=== PATIENT | male | born 1955 | race African-American/Black ===

== ENCOUNTER 2022-03-07 15:39 | Inpatient (IN) | payer MEDICARE, MEDICAID ==
[~2022-03-07] VITALS: Ht 180.3 cm; Wt 92.1 kg
[2022-03-07 16:22] LABS: BASOPHILS % 0.9 % (0.0-2.0); EOSINOPHILS % 0.6 % (0.0-5.0); HEMATOCRIT. 36.8 % (42.0-52.0); HEMOGLOBIN. 11.9 g/dL (14.0-18.0); LYMPHOCYTES % 17.4 % (20.0-50.0); MEAN CORPUSCULAR HEMOGLOBIN 26.9 pg (28.0-32.0); MEAN CORPUSCULAR VOLUME 83.5 fL (80.0-94.0); MEAN PLATELET VOLUME 9.7 fl (7.4-10.4); MONOCYTES % 9.4 % (2.0-8.0); NEUTROPHILS % 71.7 % (40.0-76.0); PLATELET 169 x1000/uL (130-400); RED BLOOD CELL COUNT 4.41 mill/uL (4.7-6.1); RED CELL DISTRIBUTION WIDTH 17.6 % (11.6-14.6)
[2022-03-07 16:27] LABS: CHLORIDE 109 mEq/L (98-107)
[2022-03-07] MEDS ORDERED: FUROSEMIDE 100MG/10ML VIAL IVP ONE (17:00)
[2022-03-07] MEDS ORDERED: ENOXAPARIN 40MG/0.4ML SYR SUBCUT SCH (17:45)
[2022-03-07] MEDS ORDERED: DOCUSATE SODIUM 100MG CAPSULE PO PRN (17:45)
[2022-03-07] MEDS ORDERED: IPRATROPIUM/ALBUTEROL 0.5-3(2.5)MG/3ML NEB HHN PRN (17:45)
[2022-03-07] MEDS ORDERED: DEXTROSE 50% WATER 50ML SYRINGE IV PRN (17:45)
[2022-03-07] MEDS ORDERED: ONDANSETRON HCL 4MG/2ML INJ IV PRN (17:45)
[2022-03-07] MEDS ORDERED: HYDRALAZINE 20MG/ML VIAL IV PRN (17:45)
[2022-03-07] MEDS ORDERED: ACETAMINOPHEN 325MG TABLET PO PRN (17:45)
[2022-03-07] MEDS ORDERED: GUAIFENESIN 200MG/10ML SUGAR FREE UDC PO PRN (17:45)
[2022-03-07] MEDS ORDERED: CLONIDINE 0.1MG TABLET PO PRN (17:45)
[2022-03-07] MEDS ORDERED: ENOXAPARIN 30MG/0.3ML SYR SUBCUT SCH (18:00)
[2022-03-07 18:06] LABS: INR 1.3; PROTHROMBIN TIME 13.7 sec (9.6-11.0)
[2022-03-07] MEDS: INSULIN LISPRO 100 UNITS/ML SUBCUT SCH ×2 (18:20→21:00)
[2022-03-07] MEDS: BLOOD SUGAR DIAGNOSTIC STRIP TEST SCH ×2 (18:38→21:06)
[2022-03-07] MEDS: ENOXAPARIN 120MG/0.8ML SYR SUBCUT SCH (19:08)
[2022-03-07 19:52] LABS: *AMPHETAMINES SCREEN URINE NEGATIVE (NEGATIVE); CANNABINOID URINE SCREEN NEGATIVE (NEGATIVE); METHADONE URINE SCREEN NEGATIVE (NEGATIVE); OPIATES URINE SCREEN NEGATIVE (NEGATIVE); PHENCYCLIDINE URINE SCREEN NEGATIVE (NEGATIVE)
[2022-03-07 19:53] LABS: *BARBITURATES SCREEN URINE NEGATIVE (NEGATIVE); *BENZODIAZEPINES SCREEN URINE NEGATIVE (NEGATIVE); *COCAINE SCREEN URINE NEGATIVE (NEGATIVE)
[2022-03-08] MEDS: BLOOD SUGAR DIAGNOSTIC STRIP TEST SCH ×3 (06:52→21:00)
[2022-03-08] MEDS: INSULIN LISPRO 100 UNITS/ML SUBCUT SCH ×5 (06:52→21:00)
[2022-03-08] MEDS: ENOXAPARIN 120MG/0.8ML SYR SUBCUT SCH ×2 (07:02→18:39)
[2022-03-08] MEDS ORDERED: FUROSEMIDE 40MG/4ML VIAL IV SCH (09:00)
[2022-03-08 11:13] VITALS: BP 133/105
[2022-03-08] MEDS ORDERED: LISINOPRIL 2.5MG TABLET PO SCH (11:45)
[2022-03-08 12:00] VITALS: BP 127/97
[2022-03-08 13:24] LABS: BASOPHILS % 0.5 % (0.0-2.0); EOSINOPHILS % 0.1 % (0.0-5.0); HEMATOCRIT. 36.6 % (42.0-52.0); HEMOGLOBIN. 11.6 g/dL (14.0-18.0); LYMPHOCYTES % 13.9 % (20.0-50.0); MEAN CORPUSCULAR HEMOGLOBIN 26.7 pg (28.0-32.0); MEAN CORPUSCULAR VOLUME 84.2 fL (80.0-94.0); MEAN PLATELET VOLUME 10.3 fl (7.4-10.4); MONOCYTES % 9.4 % (2.0-8.0); NEUTROPHILS % 76.1 % (40.0-76.0); PLATELET 185 x1000/uL (130-400); RED BLOOD CELL COUNT 4.34 mill/uL (4.7-6.1); RED CELL DISTRIBUTION WIDTH 17.7 % (11.6-14.6)
[2022-03-08 16:00] VITALS: BP 107/87
[2022-03-08] MEDS ORDERED: PNEUMOCOCCAL 23-VAL P-SAC VAC 0.5 ML IM ONE (16:00)
[2022-03-08] MEDS: ASPIRIN 81MG TABLET PO SCH (16:36)
[2022-03-08] MEDS: FUROSEMIDE 40MG/4ML VIAL IV SCH (18:04)
[2022-03-08 20:00] VITALS: BP 105/75
[2022-03-08] MEDS ORDERED: ATORVASTATIN CALCIUM 40MG TABLET PO SCH (21:00)
[2022-03-09] VITALS (9 sets, daily range): BP systolic 100–136; BP diastolic 75–94
[2022-03-09] MEDS: ENOXAPARIN 120MG/0.8ML SYR SUBCUT SCH ×2 (05:36→16:40)
[2022-03-09 06:54] LABS: BASOPHILS % 0.8 % (0.0-2.0); EOSINOPHILS % 0.4 % (0.0-5.0); HEMATOCRIT. 35.5 % (42.0-52.0); HEMOGLOBIN. 11.4 g/dL (14.0-18.0); LYMPHOCYTES % 22.5 % (20.0-50.0); MEAN CORPUSCULAR HEMOGLOBIN 26.8 pg (28.0-32.0); MEAN CORPUSCULAR VOLUME 83.1 fL (80.0-94.0); MEAN PLATELET VOLUME 10.1 fl (7.4-10.4); MONOCYTES % 11.9 % (2.0-8.0); NEUTROPHILS % 64.4 % (40.0-76.0); PLATELET 180 x1000/uL (130-400); RED BLOOD CELL COUNT 4.28 mill/uL (4.7-6.1); RED CELL DISTRIBUTION WIDTH 17.4 % (11.6-14.6)
[2022-03-09] MEDS: INSULIN LISPRO 100 UNITS/ML SUBCUT SCH ×4 (06:55→20:57)
[2022-03-09] MEDS: BLOOD SUGAR DIAGNOSTIC STRIP TEST SCH ×4 (06:55→20:57)
[2022-03-09] MEDS: ASPIRIN 81MG TABLET PO SCH (08:19)
[2022-03-09] MEDS: FUROSEMIDE 40MG/4ML VIAL IV SCH (08:19)
[2022-03-09] MEDS: METOPROLOL TARTRATE 25MG TABLET PO SCH ×2 (11:24→20:29)
[2022-03-09] MEDS: TAMSULOSIN HCL 0.4MG SR CAPSULE PO SCH (17:01)
[2022-03-10] VITALS: BP 103/77
[2022-03-10 04:00] VITALS: BP 114/85
[2022-03-10] MEDS: ENOXAPARIN 120MG/0.8ML SYR SUBCUT SCH ×2 (05:12→16:51)
[2022-03-10] MEDS: INSULIN LISPRO 100 UNITS/ML SUBCUT SCH ×4 (06:24→21:00)
[2022-03-10] MEDS: BLOOD SUGAR DIAGNOSTIC STRIP TEST SCH ×4 (06:24→21:00)
[2022-03-10 07:44] LABS: BASOPHILS % 0.7 % (0.0-2.0); EOSINOPHILS % 0.4 % (0.0-5.0); HEMATOCRIT. 35.1 % (42.0-52.0); HEMOGLOBIN. 11.3 g/dL (14.0-18.0); MEAN CORPUSCULAR HEMOGLOBIN 27.1 pg (28.0-32.0); MEAN PLATELET VOLUME 10.1 fl (7.4-10.4); MONOCYTES % 11.1 % (2.0-8.0); NEUTROPHILS % 68.8 % (40.0-76.0); PLATELET 176 x1000/uL (130-400); RED BLOOD CELL COUNT 4.18 mill/uL (4.7-6.1); RED CELL DISTRIBUTION WIDTH 17.9 % (11.6-14.6)
[2022-03-10 08:10] VITALS: BP 110/77
[2022-03-10] MEDS: FUROSEMIDE 40MG/4ML VIAL IV SCH (08:28)
[2022-03-10] MEDS: ASPIRIN 81MG TABLET PO SCH (08:28)
[2022-03-10] MEDS: METOPROLOL TARTRATE 25MG TABLET PO SCH (08:28)
[2022-03-10] MEDS: TAMSULOSIN HCL 0.4MG SR CAPSULE PO SCH (08:29)
[2022-03-10 12:02] VITALS: BP 100/64
[2022-03-10] MEDS ORDERED: LACTULOSE 20G/30ML UDC PO PRN (13:00)
[2022-03-10] MEDS ORDERED: MAGNESIUM HYDROXIDE 400MG/5ML 30ML UDC PO PRN (14:00)
[2022-03-10 15:37] VITALS: BP 100/70
[2022-03-10 20:00] VITALS: BP 104/73
[2022-03-10] MEDS: CARVEDILOL 6.25 MG TABLET PO SCH (20:59)
[2022-03-11] VITALS: BP 122/92
[2022-03-11 04:00] VITALS: BP 92/61
[2022-03-11] MEDS: ENOXAPARIN 120MG/0.8ML SYR SUBCUT SCH (05:53)
[2022-03-11] MEDS: INSULIN LISPRO 100 UNITS/ML SUBCUT SCH ×2 (06:41→12:30)
[2022-03-11] MEDS: BLOOD SUGAR DIAGNOSTIC STRIP TEST SCH ×2 (06:41→12:30)
[2022-03-11 07:23] VITALS: BP 107/85
[2022-03-11] MEDS: FUROSEMIDE 40MG/4ML VIAL IV SCH (08:07)
[2022-03-11] MEDS: TAMSULOSIN HCL 0.4MG SR CAPSULE PO SCH (08:07)
[2022-03-11] MEDS: ASPIRIN 81MG TABLET PO SCH (08:07)
[2022-03-11] MEDS: CARVEDILOL 6.25 MG TABLET PO SCH (08:07)
[2022-03-11 08:08] LABS: BASOPHILS % 0.7 % (0.0-2.0); EOSINOPHILS % 0.8 % (0.0-5.0); HEMOGLOBIN. 10.7 g/dL (14.0-18.0); LYMPHOCYTES % 24.6 % (20.0-50.0); MEAN CORPUSCULAR HEMOGLOBIN 26.9 pg (28.0-32.0); MEAN CORPUSCULAR VOLUME 82.8 fL (80.0-94.0); MEAN PLATELET VOLUME 10.4 fl (7.4-10.4); MONOCYTES % 13.5 % (2.0-8.0); NEUTROPHILS % 60.4 % (40.0-76.0); PLATELET 178 x1000/uL (130-400); RED BLOOD CELL COUNT 3.98 mill/uL (4.7-6.1); RED CELL DISTRIBUTION WIDTH 17.6 % (11.6-14.6)
[2022-03-11] MEDS ORDERED: COR6 PO (10:39)
[2022-03-11] MEDS ORDERED: FURO-151 MT (10:39)
[2022-03-11 11:10] VITALS: BP 107/85
[2022-03-11] MEDS ORDERED: DOCU-150 PO (11:55)
[2022-03-11 12:32] VITALS: BP 118/80
== END 2022-03-11 14:06 | disposition home health service (06) | DRG 291 ==
LOC: ER 15:39 → MICUSO 17:21 → EDBEDREQTM 17:26 → EDBEDREQ 17:26 → 8WST 03-08 11:23
PROVIDERS: ADMIT Internal Medicine; ATTEND Internal Medicine
DX: I13.0 Hypertensive heart and chronic kidney disease with heart failure and stage 1 through stage 4 chronic kidney disease, or unspecified chronic kidney disease (principal); I50.23 Acute on chronic systolic (congestive) heart failure; N17.9 Acute kidney failure, unspecified; I47.2 Ventricular tachycardia; I42.0 Dilated cardiomyopathy; R74.01 Elevation of levels of liver transaminase levels; E78.5 Hyperlipidemia, unspecified; N18.9 Chronic kidney disease, unspecified; I27.21 Secondary pulmonary arterial hypertension; I34.0 Nonrheumatic mitral (valve) insufficiency; Z82.41 Family history of sudden cardiac death; Z82.49 Family history of ischemic heart disease and other diseases of the circulatory system; Z91.19 Patient's noncompliance with other medical treatment and regimen
CPT/HCPCS: 36415; 71045; 76705; 76770; 80048; 80053; 80061; 80076; 80305; 82962; 83036; 83735; 83880; 84443; 84484; 85025; 93005; 93306; 99291; J1650; J1815; J1940